=== PATIENT | male | born 1975 | race Caucasian/White ===

== ENCOUNTER 2016-07-28 11:30 | Emergency (ER) | payer OTHER ==
[~2016-07-28] VITALS: Ht 185.4 cm; Wt 79.5 kg
[2016-07-28 11:38] VITALS: BP 115/73; PULSE 65; RESP 16; TEMP 98; O2SAT 96
--- NOTE | 2016-07-28 11:46 | PD ---
HPI Chief Complaint: Laceration/Skin Injury Time Seen by Provider: 11:45 Travel History International Travel<30 days: No Contact w/Intl Traveler<30days: No Traveled to known affect area: No History of Present Illness HPI 40-year-old male presents the emergency department with laceration to the right medial upper calf from a chainsaw. Patient was attempting to start the chainsaw, when the saw swung and hit his leg lacerating his leg. The chainsaw was not running at the time. Patient state he had a large amount of bleeding which she covered with a bandage and came to the emergency department. Patient is able to ambulate and bleeding is controlled here at the hospital. Patient is unsure of his last tetanus shot. He has no numbness tingling or weakness in the lower extremity. He has no other injuries. He has no known drug allergies. PENDING SALE TO [facility] Social History Alcohol Use: Yes Tobacco Use: No Substance Use: No Allergies-Medications (Allergen,Severity, Reaction): Coded Allergies: No Known Allergies (Unverified , 07/28/16) Reported Meds & Prescriptions Reported Meds & Active Scripts Active No Active Prescriptions or Reported Medications Review of Systems Except as stated in HPI: all other systems reviewed are Neg General / Constitutional: No: Fever Eyes: No: Visual changes HENT: No: Headaches Cardiovascular: No: Chest Pain or Discomfort Respiratory: No: Shortness of Breath Gastrointestinal: No: Abdominal Pain Genitourinary: No: Dysuria Musculoskeletal: No: Pain Skin: No Rash Neurologic: No: Weakness Psychiatric: No: Depression Endocrine: No: Polydipsia Hematologic/Lymphatic: No: Easy Bruising Physical Exam Narrative GENERAL: Patient appears in no acute distress. SKIN: Warm and dry. Normal color. Normal turgor. Patient has a 1 cm jagged patient to the right upper medial calf with no significant bleeding at this time. HEAD: Atraumatic. Normocephalic. EYES: Pupils equal and round. No scleral icterus. No injection or drainage. ENT: No nasal bleeding or discharge. Mucous membranes pink and moist. NECK: Trachea midline. Neck is supple nontender. CARDIOVASCULAR: Regular rate and rhythm. RESPIRATORY: No accessory muscle use. Clear to auscultation. Breath sounds equal bilaterally. MUSCULOSKELETAL: Extremities without clubbing, cyanosis, or edema. No obvious deformities. NEUROLOGICAL: Awake and alert. No obvious cranial nerve deficits. Motor grossly within normal limits. Five out of 5 muscle strength in the arms and legs. Normal speech. PSYCHIATRIC: Appropriate mood and affect; insight and judgment normal. Data Data Last Documented VS Vital Signs Date Time Temp Pulse Resp B/P Pulse Ox O2 Delivery O2 Flow Rate FiO2 07/28/16 11:38 98.0 65 16 115/73 96 MDM Medical Decision Making Medical Screen Exam Complete: Yes Emergency Medical Condition: Yes Differential Diagnosis Laceration. Need for tetanus. Need for sutures. Narrative Course Patient is medically stable at time of exam. Wound site is cleansed by nursing staff. Tetanus is given IM. Wound site repaired with sutures. Please see procedure note. Sutures should remain in place for at least 10 days. Wound instructions are reviewed with the patient. No antibiotics felt necessary at this time. Patient follow-up in 10 days for suture removal, or sooner with any signs of infection as discussed. Procedures Procedure Narrative LACERATION LOCATION: Right upper medial calf LENGTH: 1 cm NUMBER OF STITCHES/ANDERSON: 3 interrupted vertical mattress REPAIR: The area of the laceration was prepped with Betadine and sterilely draped. The laceration was infiltrated with 3 mL 1% lidocaine with epi.. The wound was copiously irrigated and explored without evidence of foreign body, tendon injury or neurovascular injury. The wound was closed using 5-0 Ethilon. This was a single layer repair. A sterile dressing was applied. The patient was advised to keep the dressing clean and dry. Patient tolerated the procedure well. Diagnosis Primary Impression: Laceration of right calf without complication Qualified Code: S81.811A - Laceration of right calf without complication, initial encounter Patient Instructions: General Instructions, Laceration (ED) Additional Instructions: Wound site is cleansed by nursing staff. Tetanus is given IM. Wound site repaired with sutures. Please see procedure note. Sutures should remain in place for at least 10 days. Wound instructions are reviewed with the patient. No antibiotics felt necessary at this time. Patient follow-up in 10 days for suture removal, or sooner with any signs of infection as discussed. Med/Other Pt SpecificInfo: Wound Care Scripts No Active Prescriptions or Reported Meds Disposition: 01 DISCHARGE HOME Condition: Stable Bora Capone Jul 28, 2016 11:46
[2016-07-28] MEDS ORDERED: LIDOCAINE 1%/EPINEPHrine 1:100,000 SOLN 20 ML VIAL INFIL ONE (12:00)
[2016-07-28] MEDS ORDERED: TETANUS/DIPHTHERIA TOXOID ADULT 0.5 ML VIAL IM ONE (12:00)
== END 2016-07-28 12:25 | disposition home or self-care (01) ==
LOC: EDSEX → PHEFT 11:30
DX: S81.811A Laceration without foreign body, right lower leg, initial encounter (principal); Z23 Encounter for immunization; W29.3XXA Contact with powered garden and outdoor hand tools and machinery, initial encounter; Y93.9 Activity, unspecified; Y92.9 Unspecified place or not applicable; Y99.9 Unspecified external cause status
CPT/HCPCS: 12001; 90471; 90714